=== PATIENT | female | born 1990 | race Caucasian/White ===

== ENCOUNTER 2025-01-14 22:03 | Emergency (ER) | payer SELFPAY ==
[~2025-01-14] VITALS: Ht 162.6 cm; Wt 58.1 kg
[~2025-01-14 22:03] MED LIST: BIRTH CONTROL; FLEXERIL5 MG PO; STEROID CREAM; VOLTAREN50 M1 PO
[2025-01-14] MEDS ORDERED: Naloxone Hydrochloride 2 MG/2 ML SYR IM ONE (22:05)
[2025-01-14 22:41] LABS: URINE AMPHETAMINES Positive (1000ng/ml); URINE BARBITURATES Negative (200ng/ml); URINE BENZODIAZEPINES Negative (200ng/ml); URINE CANNABINOIDS (THC) Positive (50ng/ml); URINE COCAINE Negative (300ng/ml); URINE METHADONE Negative (300ng/ml); URINE OPIATES Negative (300ng/ml); URINE PHENCYCLIDINE Negative (25ng/ml)
[2025-01-14 22:48] LABS: BASO % 0.3 % (0.0-1.0); EOS # 0.2 10*3/uL (0.0-0.4); EOS % 1.5 % (1.0-4.0); HEMATOCRIT 39.5 % (37.0-47.0); MEAN CELL VOLUME 89.8 fl (81.0-99.0); MEAN CORPUSCULAR HGB 29.8 pg (27.0-31.0); MEAN CORPUSCULAR HGB CONC 33.2 g/dl (33.0-37.0); MEAN PLATELET VOLUME 10.3 fl (9.6-12.3); MONO # 0.8 10*3/uL (0.1-1.0); MONO % 7.2 % (3.0-9.0); NEUT # 8.3 10*3/uL (2.3-7.9); NEUT % 71.4 % (47.0-73.0); PLATELET COUNT AUTOMATED 309 10*3/uL (130-400); WHITE BLOOD COUNT 11.6 10*3/uL (4.8-10.8)
[2025-01-14 23:08] LABS: ALKALINE PHOSPHATASE 63 U/L (46-116); BUN 11 mg/dl (9-23); CHLORIDE 104 mmol/L (98-107); ETHYL ALCOHOL 6.7 mg/dl (<3); POTASSIUM 3.1 mmol/L (3.4-5.1); SGPT/ALT 18 U/L (5-49)
[2025-01-14] MEDS ORDERED: POTASSIUM CHLORIDE 20 MEQ TAB PO ONE (23:30)
== END 2025-01-15 00:04 | disposition home or self-care (01) ==
LOC: ED
PROVIDERS: Internal Medicine
DX: F19.10 Other psychoactive substance abuse, uncomplicated (principal)